=== PATIENT | female | born 1970 | race African-American/Black ===

== ENCOUNTER 2016-12-22 08:23 | Emergency (ER) | payer MEDICARE ==
[2012-02-22 06:55] VITALS: BMI 24.2
== END 2016-12-22 09:55 | disposition home or self-care (01) ==
LOC: D.ER 08:23
DX: M54.5 Low back pain (principal); G89.29 Other chronic pain; F17.200 Nicotine dependence, unspecified, uncomplicated

== ENCOUNTER 2017-05-12 20:50 | Emergency (ER) | payer MEDICARE ==
[2012-02-22 06:55] VITALS: BMI 24.2
== END 2017-05-13 00:15 | disposition home or self-care (01) ==
LOC: D.ER 20:50
DX: J06.9 Acute upper respiratory infection, unspecified (principal); J02.9 Acute pharyngitis, unspecified; R50.9 Fever, unspecified

== ENCOUNTER 2017-07-17 10:25 | Emergency (ER) | payer MEDICARE ==
[2012-02-22 06:55] VITALS: BMI 24.2
== END 2017-07-17 13:00 | disposition home or self-care (01) ==
LOC: D.ER 10:25
DX: J06.9 Acute upper respiratory infection, unspecified (principal); J40 Bronchitis, not specified as acute or chronic; F17.200 Nicotine dependence, unspecified, uncomplicated

== ENCOUNTER 2017-07-31 05:35 | Emergency (ER) | payer MEDICARE ==
[2012-02-22 06:55] VITALS: BMI 24.2
== END 2017-07-31 06:10 | disposition home or self-care (01) ==
LOC: D.ER 05:35
DX: F41.9 Anxiety disorder, unspecified (principal); F41.0 Panic disorder [episodic paroxysmal anxiety]; F17.200 Nicotine dependence, unspecified, uncomplicated

== ENCOUNTER 2018-02-15 16:34 | Emergency (ER) | payer MEDICARE ==
[~2018-02-15] VITALS: Ht 175.3 cm; Wt 79.1 kg
[2018-02-15 17:10] VITALS: Ht 175.3 cm; Wt 79.1 kg
[2018-02-15] MEDS ORDERED: CELEBREX200 MG PO (17:12)
[2018-02-15] MEDS ORDERED: VOLTAREN75 MG PO (20:51)
[2018-02-15] MEDS ORDERED: ROBAXIN-750750 MG PO (20:51)
[2018-02-16 00:42] VITALS: BP 112/68
== END 2018-02-15 21:23 | disposition home or self-care (01) ==
LOC: D.ER 16:34
DX: M54.5 Low back pain (principal); M62.830 Muscle spasm of back; F17.200 Nicotine dependence, unspecified, uncomplicated

== ENCOUNTER 2018-03-15 10:27 | Emergency (ER) | payer MEDICARE ==
[~2018-03-15] VITALS: Ht 175.3 cm; Wt 79.1 kg
[~2018-03-15 10:27] MED LIST: CELEBREX200 MG PO; ROBAXIN-750750 MG PO; VOLTAREN75 MG PO
[2018-03-15 10:29] VITALS: BP 133/86; Ht 175.3 cm; Wt 79.1 kg
[2018-03-15] MEDS ORDERED: MEDROL DOSE PACK4 MG PO (10:57)
[2018-03-15] MEDS ORDERED: FLUTICASONE PRO16 GM NASAL (10:57)
== END 2018-03-15 11:10 | disposition home or self-care (01) ==
LOC: D.ER 10:27
DX: J01.80 Other acute sinusitis (principal)

== ENCOUNTER 2019-08-11 02:26 | Emergency (ER) | payer MEDICARE ==
[~2019-08-11] VITALS: Ht 175.3 cm; Wt 84.5 kg
[~2019-08-11 02:26] MED LIST changes: +FLUTICASONE PRO16 GM NASAL; +MEDROL DOSE PACK4 MG PO
[2019-08-11 02:37] VITALS: Ht 175.3 cm; Wt 84.5 kg
[2019-08-11] MEDS ORDERED: IBUPROFEN800 MG PO (02:40)
[2019-08-11 03:00] LABS: BASOPHILS 0.2 % (0-2); EOSINOPHILS 1.7 % (0-7); HEMATOCRIT 42.1 % (36.0-48.0); HEMOGLOBIN 14.6 g/dL (12-16); IMMATURE GRANULOCYTES 0.3 % (0-5); LYMPHOCYTES 54.8 % (15-50); MCH 30.7 pg (26.0-34.0); MCHC 34.7 g/dL (31.0-37.0); MCV 88.4 fL (80.0-100.0); MEAN PLATELET VOLUME 9.6 fL (7.4-10.4); MONOCYTES 13.6 % (2-11); NEUTROPHILS 29.4 % (40-80); RBC 4.76 10x6/uL (4.00-5.40); RDW 12.5 % (11.5-14.5); WBC 10.7 10x3/uL (4.8-10.8)
[2019-08-11 03:01] LABS: PLATELET COUNT 422 10x3/uL (130-400)
[2019-08-11 03:06] LABS: CALC OSMOLALITY 278 mosm/kg (275-300); CALCIUM 9.2 mg/dL (8.5-10.1); CARBON DIOXIDE 28.5 mmol/L (21.0-32.0); CHLORIDE - SERUM 103 mmol/L (98-107); CREATININE - SERUM 0.8 mg/dL (0.6-1.3); GLUCOSE 109 mg/dL (74-106); POTASSIUM - SERUM 3.7 mmol/L (3.5-5.1); SODIUM 140 mmol/L (136-145); UREA NITROGEN 11 mg/dL (7-18); eGFR NON AFRICAN AMERICAN 80 mL/min (90-120)
[2019-08-11 03:21] LABS: ALBUMIN 3.4 g/dL (3.4-5.0); ALKALINE PHOSPHATASE 60 U/L (30-120); ALT (SGPT) 26 U/L (10-68); BILIRUBIN - TOTAL 0.31 mg/dL (0.2-1.3); CREATINE KINASE 66 UL (21-215); PRO BNP 26 pg/mL (0-125); PROTEIN - SERUM 7.8 g/dL (6.4-8.2)
[2019-08-11 03:21] LABS: UDS - AMPHET NEGATIVE QUAL (NEGATIVE); UDS - BARB NEGATIVE QUAL (NEGATIVE); UDS - BENZO NEGATIVE QUAL (NEGATIVE); UDS - COCAINE NEGATIVE QUAL (NEGATIVE); UDS - OPIATE NEGATIVE QUAL (NEGATIVE); UDS - PCP NEGATIVE QUAL (NEGATIVE); UDS - THC POSITIVE QUAL (NEGATIVE)
[2019-08-11 03:23] LABS: TROPONIN-I < 0.017 ng/mL (0.000-0.060)
[2019-08-11 03:25] LABS: APTT 35.6 SECONDS (22.8-39.4); INR 0.94 (0.85-1.17); PROTIME 12.5 SECONDS (11.6-15.0)
[2019-08-11 03:31] LABS: BASOPHILS 3 % (0-2); LYMPHOCYTES 39 % (15-50); MONOCYTES 16 % (2-11); NEUTROPHILS 28 % (40-80); PLATELET ESTIMATE INCREASED; PLATELET MORPHOLOGY GIANT PLTS PRESENT
[2019-08-11 03:46] VITALS: BP 130/82
== END 2019-08-11 03:52 | disposition left against medical advice (07) ==
LOC: D.ER 02:26
PROVIDERS: Family Medicine
DX: R06.02 Shortness of breath (principal); B34.9 Viral infection, unspecified